=== PATIENT | male | born 1955 | race Caucasian/White ===

== ENCOUNTER 2017-03-12 15:32 | Inpatient (IN) | payer BC, OTHER ==
[2017-03-12 15:55] LABS: #Basophils 0.1 thou/uL (0.0-0.2); #Eosinphils 0.1 thou/uL (0.0-0.7); #Monocytes 1.2 thou/uL (0.11-0.59); #Neutrophils 5.9 thou/uL (1.40-6.50); %Basophils 0.7 % (0.0-1.0); %Eosinophils 1.1 % (0.0-10.0); %Lymphocytes 12.1 % (21.0-51.0); %Monocytes 14.7 % (0.0-10.0); %Neutrophils 71.5 % (42.0-75.0); Hemoglobin 16.3 g/dL (14.0-18.0); Mean Corpuscular HGB CONC 32.6 g/dL (32.0-36.0); Mean Corpuscular Hemoglobin 30.8 pg (27.0-31.0); Mean Corpuscular Volume 94.4 fl (80.0-94.0); Mean Platelet Volume 7.8 fL (7.4-10.4); Platelet Count 243 thou/uL (130-400); RBC Distribution Width 11.6 % (11.5-14.5); White Blood Cell (WBC) Count 8.3 thou/uL (4.8-10.8)
[2017-03-12 16:15] LABS: ALT (SGPT) 21 U/L (8-55); AST (SGOT) 17 U/L (5-34); Albumin 4.7 g/dL (3.4-4.8); Alkaline Phosphatase 85 U/L (40-150); Anion Gap 16 mmol/L (10-20); BUN (Urea Nitrogen) 17 mg/dL (8.4-25.7); Bilirubin, Total 0.7 mg/dL (0.2-1.2); CK (CPK) 157 U/L (30-200); Calc. Creatinine Clearance 0 mL/min (70-130); Calcium 10.1 mg/dL (7.8-10.44); Carbon Dioxide 25 mmol/L (23-31); Chloride 101 mmol/L (98-107); Estimated GFR-MDRD 80; Globulin 2.8 g/dL (2.4-3.5); Glucose 114 mg/dL (80-115); Lipase 13 U/L (8-78); Potassium 4.1 mmol/L (3.5-5.1); Protein, Total 7.5 g/dL (5.8-8.1); Sodium 138 mmol/L (136-145)
[2017-03-12 16:18] LABS: CKMB 2.1 ng/mL (0-6.6); Troponin I 0.012 ng/mL (< 0.028)
--- NOTE | 2017-03-12 16:51 | RAD ---
PA CHEST RADIOGRAPH: Date: 03-12-17 History: Atrial fibrillation. Congestion. FINDINGS: Cardiac silhouette is at the upper limits of normal in size. Pulmonary vasculature is within normal l imits. The lungs are clear. There is mild eventration of the right hemidiaphragm. There is remote fra cture of the right clavicle. IMPRESSION: No acute cardiopulmonary process. POS: [facility]
[2017-03-12] MEDS ORDERED: Diltiazem 125 MG/25 ML ONE (18:00)
[2017-03-12] MEDS ORDERED: Diltiazem HCl 125 MG, Admixture Fee 1 EACH in Sodium Chloride 0.9% 100 ML IVPB SCH (18:15)
[2017-03-12 18:44] LABS: Prothrombin Time 13.5 SEC (12.0-14.7)
[2017-03-12] MEDS ORDERED: Enoxaparin Sodium 100 MG/ML SYRINGE ONE (19:02)
[2017-03-12] MEDS ORDERED: Enoxaparin Sodium 30 MG/0.3 ML SYRINGE ONE (19:02)
[2017-03-12 20:02] LABS: Troponin I 0.013 ng/mL (< 0.028)
[2017-03-13] MEDS ORDERED: Tamsulosin HCl 0.4 MG CAP PO SCH ×2 (02:00→21:00)
[2017-03-13] MEDS ORDERED: Oseltamivir 75 MG CAP PO SCH ×2 (02:00→03:30)
[2017-03-13] MEDS ORDERED: HYDROcodone/Acetaminophen 10/325 mg Tablet PO PRN (03:15)
[2017-03-13] MEDS ORDERED: HYDROcodone/Acetaminophen 5/325 mg Tablet PO PRN (03:15)
[2017-03-13] MEDS ORDERED: Ondansetron ODT 4 MG TAB PO PRN (03:15)
[2017-03-13] MEDS ORDERED: Acetaminophen 325 MG TAB PO PRN (03:15)
[2017-03-13] MEDS ORDERED: Rivaroxaban 15 MG TAB PO SCH ×3 (03:30→21:00)
[2017-03-13] MEDS ORDERED: Diltiazem 125 MG in Sodium Chloride 0.9% 100 ML IVPB SCH (03:30)
[2017-03-13 03:49] LABS: #Eosinphils 0.1 thou/uL (0.0-0.7); #Neutrophils 5.3 thou/uL (1.40-6.50); %Basophils 0.4 % (0.0-1.0); %Eosinophils 1.9 % (0.0-10.0); %Lymphocytes 12.8 % (21.0-51.0); %Neutrophils 70.8 % (42.0-75.0); Hemoglobin 15.4 g/dL (14.0-18.0); Mean Corpuscular HGB CONC 32.4 g/dL (32.0-36.0); Mean Corpuscular Hemoglobin 30.6 pg (27.0-31.0); Mean Corpuscular Volume 94.6 fl (80.0-94.0); Mean Platelet Volume 7.9 fL (7.4-10.4); Platelet Count 218 thou/uL (130-400); RBC Distribution Width 11.8 % (11.5-14.5); Red Blood Cell (RBC) Count 5.03 mill/uL (4.70-6.10); White Blood Cell (WBC) Count 7.4 thou/uL (4.8-10.8)
[2017-03-13] MEDS ORDERED: HYDROcodone/Acetaminophen 5/325 mg Tablet ONE (04:01)
[2017-03-13 04:05] LABS: Anion Gap 12 mmol/L (10-20); BUN (Urea Nitrogen) 13 mg/dL (8.4-25.7); Calc. Creatinine Clearance 0 mL/min (70-130); Calcium 9.4 mg/dL (7.8-10.44); Carbon Dioxide 25 mmol/L (23-31); Cardiac Risk 4.3 (Less than 4.5); Chloride 101 mmol/L (98-107); Cholesterol 175 mg/dl (< 200 Desired); Estimated GFR-MDRD Greater than 90; Glucose 109 mg/dL (80-115); HDL Cholesterol 41 mg/dL (>60 Neg Risk); LDL Cholesterol, Calculated 104 mg/dL; Magnesium 1.9 mg/dL (1.6-2.6); Potassium 3.9 mmol/L (3.5-5.1); Sodium 134 mmol/L (136-145); Triglycerides 149 mg/dL (Less than 150)
--- NOTE | 2017-03-13 06:43 | HP ---
DATE OF EVALUATION: 03/13/2017 TIME OF SERVICE: 01:30 CHIEF COMPLAINT: Atrial fibrillation. HISTORY OF PRESENT ILLNESS: Mr. Sparrow is a pleasant 61-year-old white male who has had a flu-like illness for the past day and half or so. He states his had the flu over Lisa. He has had some cough, congestion, sore throat, and has flu-like illnesses. He went to his primary are physician's office today and was found to be in an irregular rhythm and was sent to the emergency department. He has had no chest pain, no other shortness of breath. No nausea or vomiting. No diarrhea or const ipation. No syncope, presyncope, or palpitations. In the ER, he was found to be in atrial fibrillation with RVR, he was placed on a Cardizem drip and w e were called for admission. The patient was accepted by the swing shift, and has been holding in the ER. His heart rates improved down into the lower 100s to upper 90s, but still remains in atrial fibrillat ion. Labs did come back and showed to be flu A positive. PRIMARY C[facility] PHYSIC[facility] . PAST MEDICAL HISTORY: 1. Hypertension. 2. BPH. PAST SURGICAL HISTORY: Includes, 1. Hernia repair in 2. 2. Right ankle repair. 3. Left knee repair remotely. HOME MEDICATIONS: 1. Flonase 2 sprays in both nostrils daily. 2. Zyrtec 10 mg daily. 3. Flomax 0.4 mg p.o. at bedtime. ALLERGIES: NKDA. FAMILY HISTORY: Negative for clotting or bleeding disorder. No immune dysfunction. He is . SOCIAL HISTORY: Significant for 3 alcoholic drinks per evening. He does chew tobacco about pouch a week. No IV drug use. REVIEW OF SYSTEMS: Ten-point review of systems was performed, negative all other systems except as s tated as per HPI. PHYSICAL EXAMINATION: VITAL SIGNS: Temperature 98.8, pulse 93, blood pressure 127/96, respiratory rate 17, sat 95% on room air. On arrival heart rate was 124, blood pressure 199/117, respiratory 18, and 97% on room air. GENERAL: He is awake. He is alert. He is oriented x3. Well-developed, well-nourished older white male, appears to be in no distress. HEENT: Normocephalic, atraumatic. Pupils are equal, round, reactive to light bilaterally, mucous me mbranes moist. There are no visible lesions. No thrush. NECK: Supple without lymphadenopathy, JVD, or thyromegaly. He has normal carotid upstrokes. There are no bruits. LUNGS: Clear. No wheezing, no rales, no rhonchi. CARDIOVASCULAR: Irregularly irregular was slightly tachycardic. There are no audible murmurs. ABDOMEN: Obese. It is nontender, nondistended. No mass or organomegaly. Good bowel sounds. No re bound, rigidity, or guarding. EXTREMITIES: No cyanosis, no clubbing. He has got 1+ edema in bilateral lower extremities just abov e the ankles. He said this is not normal for him. He has 1-2+ dorsalis pedis and posterior tibial p ulses bilaterally. SKIN: Warm, moist, and well perfused. No rashes or lesions. MUSCULOSKELETAL: Exam is normal to inspection. There are no inflamed joints. No palpable effusions . NEUROLOGIC: Cranial nerves II-XII are grossly intact without any focal neurologic deficits. PSYCHIATRIC: Normal speech pattern. LABORATORY DATA: Sodium 138, potassium 4.6, chloride 101, bicarb 25, BUN 17, creatinine 0.96, and gl ucose of 114, calcium 10.1. Liver function normal. CBC showed a white count of 8.3, hemoglobin 16.3, hematocrit of 50.0, and platelet count 243,000. CK-MB is 2.1, troponin I trended from 0.012 to 0.013 to 0.010 all normal. TSH 3.90. INR is 1.0 and flu screen is positive for influenza A. Chest x-ray showed no acute cardiopulmonary disease. ASSESSMENT AND PLAN: 1. Atrial fibrillation with rapid ventricular response: New-onset atrial fibrillation. The patient is on Cardizem drip, we will increase from 5 to 10 mg now. We will likely watch overnight, and if h e has not converted by morning, we will ask Cardiology to evaluate. The patient is a candidate for a nticoagulation. We will place him on Xarelto 15 mg b.i.d. for 21 days and then 20 mg thereafter. He may be able to go down to 10 mg a day. New FDA guidelines. 2. Hypertension, currently under control. He is not on any medications; usually only in a doctor's office. He is normotensive on 5 Cardizem, we will convert him to oral if he happens to convert back to sinus rhythm. 3. Allergies. We will continue Flonase and Zyrtec. 4. BPH on Flomax, we will continue. 5. Influenza A. Tamiflu 75 mg b.i.d. for 5 days.
[2017-03-13] MEDS ORDERED: Famotidine 20 MG TAB ONE (08:52)
[2017-03-13] MEDS: Famotidine 20 MG TAB PO SCH ×2 (14:37→20:54)
[2017-03-13] MEDS: Fluticasone Propionate Nasal Spray 16 gm Bottle NASAL SCH (14:38)
[2017-03-13] MEDS: Loratadine 10 MG TAB PO SCH (14:38)
[2017-03-13 15:04] VITALS: BMI 38.0
--- NOTE | 2017-03-13 16:48 | PDOC.EVN ---
Event Note - Event Note Event Note: Chart reviewed, pt seen. Feels better. Still in a. fib. Will follow.
--- NOTE | 2017-03-13 17:35 | CON ---
DATE OF CONSULTATION: 03/13/2017 HISTORY OF PRESENT ILLNESS: The patient is a pleasant 61-year-old gentleman who presented with congestion and was noted to have an irregular heart rate. The patient has no previous cardiac history. He started having sore throat and flu-like symptoms. He went to see a local physician and he was noted to be in irregular heart rhythm and sent for further evaluation. The patient denies having any palpitations. The patient denies having any chest discomfort. He reports being mildly dyskinetic. The patient denies having any PND or orthopnea. PAST MEDICAL HISTORY: 1. Hypertension. 2. Benign prostatic hypertrophy. PAST SURGICAL HISTORY: Knee surgery, ankle surgery, and hernia surgery. MEDICATIONS: Zyrtec, Flonase, and Flomax. ALLERGIES: None. FAMILY HISTORY: Positive family history of heart disease. Brother had a myocardial infarction. SOCIAL HISTORY: The patient does consume significant alcohol. He is a nonsmoker. REVIEW OF SYSTEMS: Ten-point system is otherwise unremarkable. No history of easy bruising or bleeding bright red blood per rectum, hematuria. PHYSICAL EXAMINATION: GENERAL: This is an obese gentleman in no acute distress. VITAL SIGNS: Blood pressure of 120/96, heart rate was approximately 100 and irregular. NECK: No jugular venous distention. LUNGS: Clear to auscultation. HEART: Irregular rate and rhythm. Normal S1, S2. No murmurs. ABDOMEN: Distended. EXTREMITIES: No edema. SKIN: Warm and dry. NEUROLOGIC: Nonfocal. VASCULAR: Radial pulses 2+. LABORATORY DATA: Sodium 134, potassium 3.9, chloride 101, bicarbonate 25, BUN 13, creatinine is 0.85, glucose 109. Troponin was 0.01. His TSH is 3.9. White blood cell count 7.4, hemoglobin 15.4, hematocrit 47.6, and platelets are 218. Telemetry monitoring revealed atrial fibrillation with a rapid ventricular response. IMPRESSION: 1. New-onset atrial fibrillation. 2. Hypertension. 3. Morbid obesity. This gentleman presents with new-onset atrial fibrillation. He remains in atrial fibrillation with a rapid rate despite being on IV Cardizem. We will start the patient on Toprol. The patient has a CHADS-VASc score of 1. His only known risk factor is hypertension. From a cardiac standpoint, with his persistent tachycardia, we would recommend that he undergo electrical cardioversion. The patient will be started on Xarelto. We will check the patient's echocardiogram. IMPRESSION: We will follow this patient with you through his hospitalization. ZOE
[2017-03-13] MEDS ORDERED: Rivaroxaban 10 MG TAB PO SCH (18:00)
[2017-03-13] MEDS: Oseltamivir 75 MG CAP PO SCH (20:54)
[2017-03-14] MEDS ORDERED: Diprivan 20 ML ONE (09:42)
--- NOTE | 2017-03-14 10:30 | OP ---
INDICATIONS FOR SURGERY: A 61-year-old gentleman with paroxysmal atrial fibrillation. DESCRIPTION OF PROCEDURE: The patient taken to the PACU, the patient was sedated by Anesthesiology. The patient was shocked with 200 joules of synchronized electricity. The patient converted to dmitri l sinus rhythm. IMPRESSION: Successful electrical cardioversion.
--- NOTE | 2017-03-14 10:48 | ECHO ---
TRANSESOPHAGEAL ECHOCARDIOGRAM: HISTORY: This is a 61-year-old gentleman with paroxysmal atrial fibrillation. DESCRIPTION OF PROCEDURE: The patient taken to the PACU. The patient was sedated by anesthesiology. A transesophageal probe w as placed to the distal esophageal and stomach. Echocardiograms were obtained and the transesophageal probe was removed. FINDINGS: 1. Normal left ventricular systolic function. 2. Normal left ventricular size. 3. Normal mitral and aortic valves. 4. Mild mitral regurgitation. 5. Mild tricuspid regurgitation. 6. Trivial aortic regurgitation. 7. No thrombus in the left atrial or left atrial appendage. 8. Atherosclerotic debris in the descending aorta. IMPRESSION: No formed thrombus in the left atrial or left atrial appendage. POS: [facility]
[2017-03-14] MEDS: Loratadine 10 MG TAB PO SCH (11:27)
[2017-03-14] MEDS: Oseltamivir 75 MG CAP PO SCH (11:27)
[2017-03-14] MEDS: Famotidine 20 MG TAB PO SCH (11:27)
[2017-03-14] MEDS: Fluticasone Propionate Nasal Spray 16 gm Bottle NASAL SCH (11:28)
[2017-03-14 12:22] VITALS: TEMP 98.1
--- NOTE | 2017-03-14 14:26 | DIS ---
DATE OF ADMISSION: 03/12/2017 DATE OF DISCHARGE: 03/14/2017 PRIMARY CARE PHYSICIAN: Dr. Celia Dorantes. DISCHARGE DIAGNOSES: 1. Atrial fibrillation with rapid ventricular response. 2. Influenza A infection. CONDITION OF PATIENT AT THE TIME OF DISCHARGE: Stable. I assess Mr. Sparrow on the day of discharge . He denies any chest pain or shortness of breath. Vital signs are stable. S1 and S2 are heard, re gular. Lungs are clear to auscultation bilaterally. DISCHARGE MEDICATIONS: Toprol-XL 100 mg daily, rivaroxaban 20 mg daily, Flomax 0.4 mg daily, Tamiflu 75 mg 2 times a day, 7 more doses. HOSPITAL COURSE: Mr. Sparrow is a pleasant 61-year-old gentleman who was admitted to [facility] on 03/13/2017 for influenza A infection and atrial fibrillation with rapid ventric ular response. He was seen by Cardiology Service. He was initially treated with a Cardizem drip. H e had a SUMEET on 03/14/2017, which did not show any formed thrombus in the left atrium or left atrial a ppendage. He was subsequently electrically cardioverted. He is being discharged home in a stable co ndition. He has a followup appointment with Cardiology Service on 04/03/2017 at 11:30 a.m. He is al so advised to follow up with his primary care physician in 3-5 days. CONSULTATIONS DURING THIS HOSPITALIZATION: Cardiology, Dr. Mackenzie. LABORATORY DATA: On 03/13/2017, he had a white count of 7400, hemoglobin 15.4, platelet count 218,00 0. Sodium 134, potassium 3.9, and creatinine 0.85. His TSH during this hospitalization was normal. Fasting lipid profile showed triglycerides 149, cholesterol 175, LDL cholesterol 104 and HDL cholest emily 41. DISCHARGE DESTINATION: Home. TOTAL AMOUNT OF TIME SPENT COORDINATING THIS DISCHARGE: 26 minutes. Many thanks for allowing me to participate in your patient's care. Please feel free to contact me wi th any questions or concerns.
[2017-03-14 16:50] VITALS: BP 146/102
--- NOTE | 2017-03-16 00:18 | EKG ---
Test Reason : POST CARDIOVERSION Blood Pressure : / mmHG Vent. Rate : 079 BPM Atrial Rate : 079 BPM P-R Int : 348 ms QRS Dur : 096 ms QT Int : 386 ms P-R-T Axes : 054 003 030 degrees QTc Int : 442 ms Sinus rhythm with 1st degree A-V block Otherwise normal ECG When compared with ECG of 12-MAR-2017 15:36, (Unconfirmed) Sinus rhythm has replaced Atrial fibrillation Vent. rate has decreased BY 40 BPM Confirmed by Moe CALIX ([id number]) on 03/16/2017 12:18:20 AM Referred By: YURI Confirmed By:Moe CALIX
== END 2017-03-14 15:31 | disposition home or self-care (01) | DRG 310 ==
LOC: ERS 15:32 → OBSVTOIN 19:00 → ERHOLD 19:00 → 2NO 03-13 14:54
PROVIDERS: ADMIT Internal Medicine; ATTEND Internal Medicine
PROC: 5A2204Z Restoration of Cardiac Rhythm, Single (ICD-10-PCS; principal; 2017-03-14)
DX: I48.0 Paroxysmal atrial fibrillation (principal); E66.01 Morbid (severe) obesity due to excess calories; J10.1 Influenza due to other identified influenza virus with other respiratory manifestations; I10 Essential (primary) hypertension; N40.0 Benign prostatic hyperplasia without lower urinary tract symptoms
CPT/HCPCS: 36415; 71045; 80048; 80053; 80061; 82550; 82553; 83690; 83735; 84443; 84484; 85025; 85610; 85730; 92960; 93005; 93010; 93306; 93312; J1650; J2704; J7050